=== PATIENT | female | born 1975 | race Caucasian/White ===

== ENCOUNTER 2019-10-21 06:49 | Outpatient (CLI) | payer OTHER, SELFPAY ==
--- NOTE | ~2019-10-21 | XR_ITS ---
EXAMINATION: XR hand BI arthritis min 3V DATE: 10/21/2019 15:21 INDICATION: Arthralgia of both hands. TECHNIQUE: 4 views of right hand and 4 views of left hand on 7 radiographs were obtained. COMPARISON: Left hand fifth digit radiographs 02/16/2011 FINDINGS: RIGHT HAND: Bone alignment is normal. No fracture. There is mild osteoarthritis of fifth distal inter phalangeal joint. LEFT HAND: Bone alignment is normal. No fracture. There is mild osteoarthritis of first interphalange al joint and second, third, and fifth distal interphalangeal joints. IMPRESSION: 1. Mild polyarticular osteoarthritis. Reviewed, dictated and finalized at location A.
[2019-10-21 07:44] LABS: Basophils Percent Auto 0.6 % (0.2-1.2); Eosinophils Absolute Auto 0.1 K/mm3 (0-0.3); Eosinophils Percent Auto 2.3 % (0-4.4); Hemoglobin 12.7 g/dL (12.0-15.0); Immature Granulocyte Absolute 0.02 K/mm3 (0.00-0.031); Immature Granulocyte Percent A 0.4 % (0-0.5); Lymphocytes Absolute Auto 1.45 K/mm3 (0.9-3.2); Lymphocytes Percent Auto 30.1 % (18.3-44.2); Mean Corpuscular HGB Conc 33.4 g/dl (32-36); Mean Corpuscular Hemoglobin 31.3 pg (26-34); Mean Corpuscular Volume 93.6 fl (80-100); Mean Platelet Volume 10.1 fl (7.4-10.4); Monocytes Absolute Auto 0.3 K/mm3 (0.1-0.6); Monocytes Percent Auto 6.4 % (2.6-8.5); Neutrophils Absolute Auto 2.9 K/mm3 (1.3-6.7); Neutrophils Percent Auto 60.2 % (45.5-73.1); Platelet Count Result 215 k/mm3 (150-375); Red Blood Count 4.06 M/mm3 (4.2-5.4); Red Cell Distribution Width 13.1 % (11.5-14.5); White Blood Count 4.8 K/mm3 (4.5-10.0)
[2019-10-21 07:59] LABS: Alanine Aminotransferase 22 U/L (4-35); Albumin Level 4.4 g/dL (3.5-5.1); Alkaline Phosphatase 61 U/L (38-126); Anion Gap 9.9 mmol/L (7-16); Aspartate Amino Transferase 27 U/L (14-36); Bilirubin,Total 0.7 mg/dL (0.2-1.3); Blood Urea Nitrogen 10 mg/dL (7-17); Calcium 8.8 mg/dL (8.4-10.2); Carbon Dioxide 27 mmol/L (22-30); Chloride 103 mmol/L (98-107); Cholesterol 205 mg/dL (0-200); Estimated Glomerular Filt Rate > 60; Glucose 96 mg/dL (65-105); HDL Direct 66 mg/dL; Potassium 3.9 mmol/L (3.4-5.0); Sodium 136 mmol/L (137-145); Triglycerides 87 mg/dL (<150)
[2019-10-21 08:09] LABS: LDL Cholesterol Direct 97 mg/dL
[2019-10-21 08:10] LABS: Add Urine Microscopic? YES; Appearance Urine Cloudy (Clear); Bacteria Urine Trace /hpf; Bilirubin Urine Negative (Negative); Blood Urine 1+ (Negative); Color Urine Yellow (Yellow); Glucose Urine UA Negative (Negative); Ketones Urine Negative (Negative); Leukocyte Esterase Ur 3+ LEU/UL (Negative); Mucus Urine Few /lpf; Nitrate Urine Negative (Negative); Protein Urine Negative (Negative); Squamous Epithelial Cell Urine Many /hpf (Few); Urobilinogen Urine Negative mg/dL (<2.0)
[2019-10-21 09:01] LABS: Rheumatoid Factor < 8.6 IU/ML (<12)
[2019-10-24 17:47] LABS: SS-A <1.0; SS-B <1.0
== END 2019-10-21 06:50 | disposition home or self-care (01) ==
LOC: ANHLAB 06:53
PROVIDERS: PCP Internal Medicine; Visit Provider Registered Nurse
DX: M25.571 Pain in right ankle and joints of right foot (principal); Z68.21 Body mass index [BMI] 21.0-21.9, adult; M25.572 Pain in left ankle and joints of left foot; H04.123 Dry eye syndrome of bilateral lacrimal glands; M19.041 Primary osteoarthritis, right hand; M19.042 Primary osteoarthritis, left hand
CPT/HCPCS: 36415; 73130; 80053; 80061; 81001; 84443; 84550; 85025; 86038; 86235; 86430; 87086; 87088

== ENCOUNTER 2020-02-02 11:23 | Outpatient (CLI) | payer OTHER, SELFPAY ==
--- NOTE | ~2020-02-02 | XR_ITS ---
EXAMINATION: XR chest 2V DATE: 02/02/2020 11:50 INDICATION: Pleuritic chest pain. TECHNIQUE: Frontal and lateral views of the chest were obtained. COMPARISON: Chest single view 08/01/2003 FINDINGS: There is mild scarring at the lung apices. There is chronic scarring in the lingula. No ple ural effusion or pneumothorax. The heart size is normal. IMPRESSION: 1. Stable scarring at the lung apices and in the lingula. Reviewed, dictated and finalized at location B. R SEAMER
== END 2020-02-02 11:24 | disposition home or self-care (01) ==
PROVIDERS: PCP Internal Medicine; Visit Provider Internal Medicine
DX: R07.1 Chest pain on breathing (principal); R91.8 Other nonspecific abnormal finding of lung field
CPT/HCPCS: 71046

== ENCOUNTER 2020-02-29 15:34 | Outpatient (CLI) | payer OTHER, SELFPAY ==
--- NOTE | ~2020-02-29 | MM_ITS ---
EXAMINATION: MM screening jessica BI w rachel HISTORY: Screening TECHNIQUE: Craniocaudal and mediolateral oblique 3-D tomosynthesis images were obtained and synthetic 2-D images were generated. CAD analysis was submitted and interpreted. COMPARISON: 05/02/2016 BREAST PARENCHYMAL COMPOSITION: The breasts are extremely dense, which lowers the sensitivity of mamm ography. FINDINGS: There is no evidence of suspicious mass, calcification, or architectural distortion to sugg est malignancy in either breast. There has been no suspicious interval change. IMPRESSION: 1. No mammographic evidence of malignancy. 2. Recommend routine screening mammography in one year. BI-RADS Category 1: Negative Reviewed, dictated and finalized at location A. ING SERVICES MANAGER
[2020-02-29 16:43] LABS: CRP < 0.5 mg/dL (<1.0); Uric Acid 2.8 mg/dL (2.5-7.5)
[2020-02-29 16:58] LABS: T4 Thyroxine 7.78 ug/dL (5.53-11.0)
[2020-02-29 17:14] LABS: Erythrocyte Sedimentation Rate 23 mm/hr (0-20)
[2020-02-29 17:53] LABS: Folic Acid > 20.0 ng/mL (2.76->20)
[2020-02-29 18:23] LABS: Vitamin D 25 Hydroxy 31.9 ng/mL
[2020-03-02 22:13] LABS: Anti Cyclic Citrullinated Pept <16 Units (<20)
[2020-03-03 14:33] LABS: FSH 13.6 mIU/mL (***)
[2020-03-10 13:36] LABS: Reference Lab Test Name 14-3-3 eta Protein
== END 2020-02-29 15:35 | disposition home or self-care (01) ==
PROVIDERS: Internal Medicine Rheumatology; PCP Internal Medicine; Visit Provider Obstetrics & Gynecology
DX: Z12.31 Encounter for screening mammogram for malignant neoplasm of breast (principal); N91.2 Amenorrhea, unspecified; E55.9 Vitamin D deficiency, unspecified; E53.8 Deficiency of other specified B group vitamins; R53.83 Other fatigue; E83.42 Hypomagnesemia; M19.90 Unspecified osteoarthritis, unspecified site
CPT/HCPCS: 36415; 77063; 77067; 82306; 82607; 82746; 83001; 83520; 84436; 84443; 84550; 85652; 86038; 86140; 86200

== ENCOUNTER 2021-05-11 14:59 | Outpatient (CLI) | payer OTHER, SELFPAY ==
[2021-05-11 15:24] LABS: Basophils Percent Auto 0.5 % (0.2-1.2); Eosinophils Absolute Auto 0.2 K/mm3 (0-0.3); Eosinophils Percent Auto 2.4 % (0-4.4); Hematocrit 36.3 % (37.0-47.0); Immature Granulocyte Absolute 0.01 K/mm3 (0.00-0.031); Immature Granulocyte Percent A 0.2 % (0-0.5); Lymphocytes Absolute Auto 1.54 K/mm3 (0.9-3.2); Lymphocytes Percent Auto 24.1 % (18.3-44.2); Mean Corpuscular HGB Conc 33.1 g/dl (32-36); Mean Corpuscular Hemoglobin 31.7 pg (26-34); Monocytes Absolute Auto 0.3 K/mm3 (0.1-0.6); Monocytes Percent Auto 4.9 % (2.6-8.5); Neutrophils Absolute Auto 4.3 K/mm3 (1.3-6.7); Neutrophils Percent Auto 67.9 % (45.5-73.1); Platelet Count Result 214 k/mm3 (150-375); Red Blood Count 3.78 M/mm3 (4.2-5.4); Red Cell Distribution Width 12.7 % (11.5-14.5); White Blood Count 6.4 K/mm3 (4.5-10.0)
[2021-05-11 15:42] LABS: Alanine Aminotransferase 11 U/L (4-35); Albumin Level 4.5 g/dL (3.5-5.1); Alkaline Phosphatase 54 U/L (38-126); Anion Gap 9 mmol/L (8-16); Aspartate Amino Transferase 27 U/L (14-36); Bilirubin,Total 0.5 mg/dL (0.2-1.3); Blood Urea Nitrogen 14 mg/dL (7-17); Calcium 9.3 mg/dL (8.4-10.2); Carbon Dioxide 30 mmol/L (22-30); Chloride 100 mmol/L (98-107); Cholesterol 177 mg/dL (0-200); Estimated Glomerular Filt Rate > 60; Glucose 121 mg/dL (65-110); HDL Direct 59 mg/dL; Potassium 3.8 mmol/L (3.4-5.0); Sodium 139 mmol/L (137-145); Triglycerides 87 mg/dL (<150)
[2021-05-11 15:51] LABS: LDL Cholesterol Direct 81 mg/dL
[2021-05-11 20:20] LABS: Vitamin D 25 Hydroxy 40.9 ng/mL
[2021-05-14 12:53] LABS: FSH 33.2 mIU/mL (***)
== END 2021-05-11 15:00 | disposition home or self-care (01) ==
PROVIDERS: PCP Internal Medicine; Visit Provider Obstetrics & Gynecology
DX: Z00.00 Encounter for general adult medical examination without abnormal findings (principal); Z20.822 Contact with and (suspected) exposure to COVID-19; N95.1 Menopausal and female climacteric states
CPT/HCPCS: 36415; 80053; 80061; 82306; 83001; 84443; 85025; 86769

== ENCOUNTER 2021-10-03 07:56 | Emergency (ER) | payer OTHER, SELFPAY ==
--- NOTE | ~2021-10-03 | XR_ITS ---
EXAMINATION: XR wrist RT min 3V DATE: 10/03/2021 08:19 INDICATION: Pain at the right carpus post injury TECHNIQUE: Posteroanterior, ulnar deviation, oblique, and lateral views of the right wrist were obtai [place]. COMPARISON: Right hand radiographs dated 10/21/2019 FINDINGS: Alignment is normal. No fracture. Mild osteoarthritis at the distal radioulnar, second and third carp ometacarpal, fifth metacarpophalangeal and a few of the visualized interphalangeal joints. Soft tissu es are unremarkable. IMPRESSION: 1. Mild polyarticular osteoarthritis. No acute osseous abnormality. Reviewed, dictated and finalized at location B.
[2021-10-03 08:08] VITALS: BP 113/70; PULSE 95; RESP 18; TEMP 36.8; O2SAT 100
--- NOTE | 2021-10-03 09:10 | ED.UPPEXIN ---
HPI - Extremity Injury (Upper) General Chief Complaint: Extremity Injury, Upper Stated Complaint: work related wrist injury Time Seen by Provider: 10/03/21 08:47 History of Present Illness HPI narrative: 46-year-old female presents the emergency room for evaluation of right wrist injury. 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 The pen slipped causing her wrist to hyperextend. Injury occurred yesterday. Reports pain radiates into her forearm. Denies any loss of function. Has not taken any medications to alleviate her symptoms. Related Data Home Medications Medication Instructions Recorded Confirmed zinc 50 mg tablet 50 mg PO DAILY 02/15/20 02/21/20 ascorbate calcium (vitamin C) 500 500 mg PO DAILY 02/27/21 mg tablet cholecalciferol (vitamin D3) 50 50 mcg PO DAILY 02/27/21 mcg (2,000 unit) capsule multivitamin 1 tablet PO DAILY 02/27/21 Allergies Allergy/AdvReac Type Severity Reaction Status Date / Time No Known Allergies Allergy Verified 02/27/21 09:09 Review of Systems Review of Systems: CONSTITUTIONAL: Denies fever, chills, or sweats. EYES: Denies visual changes, redness, or discharge. ENT: Denies rhinorrhea, congestion, sore throat, or otalgia. CARDIOVASCULAR: Denies chest pain, palpitations, or edema. RESPIRATORY: Denies cough or dyspnea. GASTROINTESTINAL: Denies abdominal pain, nausea, vomiting, or diarrhea. GENITOURINARY: Denies dysuria or hematuria. SKIN: Denies rash or itching. MUSCULOSKELETAL: Reports right wrist pain NEUROLOGIC: Denies headache, numbness, dizziness, or weakness. PSYCHIATRIC: Denies anxiety or depression. [facility] Past Medical History Medical History Depression History of anemia History of depression Miscarriage Surgical History Surgical History H/O laparoscopy History of endometrial ablation S/P dilation and curettage [place] teeth extracted Family History Family History Father Diabetes mellitus Hypertension Mother Hypertension Social History Social History Smoking status: Never smoker Alcohol intake: current Drinks per week: 1 Substance use: never Exam Narrative: GENERAL: Well-appearing, well-nourished, no physical limitations, and in no acute distress. HEAD: Normocephalic, atraumatic. EYES: Conjunctivae normal, PERRLA and EOMI. CHEST: Clear to auscultation. No respiratory distress. No wheezes rales or rhonchi. No tenderness. HEART: Regular rate and rhythm. No murmur heard. Normal peripheral pulses. EXTREMITIES: Right wrist: Tenderness in the radiocarpal joint, no soft tissue swelling noted full range of motion in all godinez of movement, no bony abnormality, no ecchymosis. Neurovascular is intact distally no snuffbox tenderness SKIN: Warm, dry, no rash. No noted wounds NEURO: No focal deficits. Alert and oriented x3. MAEW. CN's II-XI intact bilaterally, normal gait PSYCH: Cooperative. Normal mood and affect. Course Vital Signs Vital signs: Vital Signs Temperature 36.8 C 10/03/21 08:08 Pulse Rate 95 10/03/21 08:08 Respiratory Rate 18 10/03/21 08:08 Blood Pressure 113/70 10/03/21 08:08 Pulse Oximetry 100 10/03/21 08:08 Temperature 36.8 C 10/03/21 08:08 Pulse Rate 95 10/03/21 08:08 Respiratory Rate 18 10/03/21 08:08 Blood Pressure 113/70 10/03/21 08:08 Pulse Oximetry 100 10/03/21 08:08 Discharge Plan Discharge Clinical Impression: Right wrist sprain Patient Disposition: Home, Self-Care Condition: Stable Instructions: Antibiotic Form, Wrist Sprain (ED) Additional Instructions: Wear Paolo bandage until you can acquire a wrist splint. Wear your splint for comfort for the next 5 to 7 days. Anitha morrissey
== END 2021-10-03 10:01 | disposition home or self-care (01) ==
LOC: ANHED 09:22
PROVIDERS: Emergency Provider Nurse Practitioner Family; PCP Internal Medicine
DX: S63.501A Unspecified sprain of right wrist, initial encounter (principal); X58.XXXA Exposure to other specified factors, initial encounter; Y99.0 Civilian activity done for income or pay
CPT/HCPCS: 73110; 99283

== ENCOUNTER 2022-03-06 00:09 | Day surgery (SDC) | payer OTHER, SELFPAY ==
--- NOTE | 2022-01-13 10:51 | SUR.PREOP ---
[address] POZO'S UNAVAILABILITY FOR HER PROCEDURE TOMORROW. INSTRUCTED PATIENT TO RESUME NORMAL DIET AND INFORMED HER THAT THE DOCTOR'S OFFICE WOULD BE CALLING HER TO RESCHEDULE HER PROCEDURE. PATIENT VOICED UNDERSTANDING.
[2022-03-06 08:16] VITALS: BP 114/68; PULSE 98; RESP 18; TEMP 36.3; O2SAT 100; BMI 20.5
[2022-03-06] MEDS: LACTATED RINGERS 1,000 ML 150 ML IV CONT (08:25)
--- NOTE | 2022-03-06 09:01 | WPDANESEPPF ---
Anes - Initial Pre Proc Eval Procedure: Operation Date: 03/06/22 09:15 Proposed Procedures p Screening Colonoscopy - Danish Rocha MD Date/Time: 03/06/22 09:01 Surgeon: Danish Rocha MD Pre Op Diagnosis: neoplasm screening Patient Data Age: 46 Gender: F Height: 1.7 m Weight: 59.4 kg Last Vital Signs Temp 97.4 F L 03/06/22 08:16 Pulse 98 03/06/22 08:16 Resp 18 03/06/22 08:16 BP 114/68 03/06/22 08:16 Pulse Ox 100 03/06/22 08:16 Allergies Allergy/AdvReac Type Severity Reaction Status Date / Time No Known Allergies Allergy Verified 02/25/22 14:24 Home Medications Medication Instructions Recorded Confirmed Type zinc 50 mg tablet 50 mg PO DAILY 02/15/20 02/25/22 History ascorbate calcium (vitamin C) 500 500 mg PO DAILY 02/27/21 02/25/22 History mg tablet cholecalciferol (vitamin D3) 50 50 mcg PO DAILY 02/27/21 02/25/22 History mcg (2,000 unit) capsule multivitamin 1 tablet PO DAILY 02/27/21 02/25/22 History Patient hx anesthesia problems: post op nausea/vomiting Family hx anesthesia problems: none Results Review: All pre-operative results and documents have been reviewed as part of the pre-operative evaluation. [facility] Past Medical History Medical History Depression History of anemia History of depression Miscarriage Surgical History Surgical History H/O laparoscopy History of endometrial ablation S/P dilation and curettage [place] teeth extracted Family History Family History Father Diabetes mellitus Hypertension Mother Hypertension Social History Social History Smoking status: Never smoker Alcohol intake: current Drinks per week: 1 Substance use: never Substance use type: does not use Living arrangements: with family Spiritual care concerns: No Anes - Eval Final PreProcedure Day of Procedure 03/06/22 09:01 Patient weight: normal Heart: regular rate and rhythm Lungs: clear to auscultation Airway: Mallampati scale class II Neurological: alert and oriented Last oral intake: >/= 8 hours ASA classification: II Emergent: no Anesthetic plan: proceed Anesthesia type and monitoring: general GIVS and standard monitoring Results Review: All pre-operative results and documents have been reviewed as part of the pre-operative evaluation. Informed Consent: The patient's anesthetic plan and its attendant risks and benefits were discussed with the patient/family/POA. Questions were solicited and answers provided to the satisfaction of the patient/family/POA.
--- NOTE | 2022-03-06 09:04 | P.PNAN_ITS ---
Anes - Initial Pre Proc Eval Procedure: Operation Date: 03/06/22 09:15 Proposed Procedures p Screening Colonoscopy - Danish Rocha MD Date/Time: 03/06/22 09:04 Surgeon: Danish Rocha MD Pre Op Diagnosis: neoplasm screening Patient Data Age: 46 Gender: F Height: 1.7 m Weight: 59.4 kg Last Vital Signs Temp 97.4 F L 03/06/22 08:16 Pulse 98 03/06/22 08:16 Resp 18 03/06/22 08:16 BP 114/68 03/06/22 08:16 Pulse Ox 100 03/06/22 08:16 Allergies Allergy/AdvReac Type Severity Reaction Status Date / Time No Known Allergies Allergy Verified 02/25/22 14:24 Home Medications Medication Instructions Recorded Confirmed Type zinc 50 mg tablet 50 mg PO DAILY 02/15/20 02/25/22 History ascorbate calcium (vitamin C) 500 500 mg PO DAILY 02/27/21 02/25/22 History mg tablet cholecalciferol (vitamin D3) 50 50 mcg PO DAILY 02/27/21 02/25/22 History mcg (2,000 unit) capsule multivitamin 1 tablet PO DAILY 02/27/21 02/25/22 History Patient hx anesthesia problems: post op nausea/vomiting Family hx anesthesia problems: none Results Review: All pre-operative results and documents have been reviewed as part of the pre- operative evaluation. [facility] Past Medical History Medical History Depression History of anemia History of depression Miscarriage Surgical History Surgical History H/O laparoscopy History of endometrial ablation S/P dilation and curettage [place] teeth extracted Family History Family History Father Diabetes mellitus Hypertension Mother Hypertension Social History Social History Smoking status: Never smoker Alcohol intake: current Drinks per week: 1 Substance use: never Substance use type: does not use Living arrangements: with family Spiritual care concerns: No Anes - Eval Final PreProcedure Day of Procedure 03/06/22 09:04 Patient weight: normal Heart: regular rate and rhythm Lungs: clear to auscultation Airway: Mallampati scale class II Neurological: alert and oriented Last oral intake: >/= 8 hours Emergent: no Anesthetic plan: proceed Anesthesia type and monitoring: general GIVS and standard monitoring Results Review: All pre-operative results and documents have been reviewed as part of the pre- operative evaluation. Informed Consent: The patient's anesthetic plan and its attendant risks and benefits were discussed with the patient/family/POA. Questions were solicited and answers provided to the satisfaction of the patient/family/POA.
--- NOTE | 2022-03-06 09:20 | PM.HPGS ---
History of Present Illness History of Present Illness Consent: Risks, benefits, and alternatives have been discussed and questions answered. Patient agrees to proceed with procedure. Chief complaint: neoplasm screening Narrative: Prabha Kinney is a 46 year old female here for first screening colonoscopy Review of Systems Constitutional: Constitutional: Denies headache(s) and Denies weakness Eyes: Eyes: Denies blurry vision ENT: Reports Normal hearing present, Denies headache(s) and Denies neck pain Cardiovascular: Cardiovascular: Denies chest pain and Denies dyspnea Respiratory: Respiratory: Denies dyspnea Gastrointestinal: Gastrointestinal: Reports no additional gastrointestinal complaints Genitourinary: Genitourinary: Denies dysuria Musculoskeletal: Musculoskeletal: Denies neck pain Integumentary/Breasts: Skin/Breast: Denies dry skin Neurologic: Reports Normal hearing present, Denies headache(s) and Denies weakness Psychiatric: Psychiatric: Denies anxiety Endocrine: Endocrine: Denies change in body appearance Hematologic/Lymphatic: Hematologic/Lymphatic: Denies easy bleeding Allergic/Immunologic: Allergic/Immunologic: Denies urticaria [facility] Past Medical History Medical History (Updated 03/06/22 @ 09:20 by Danish Rocha MD) Colon cancer screening Depression History of anemia History of depression Miscarriage Surgical History Surgical History H/O laparoscopy History of endometrial ablation S/P dilation and curettage [place] teeth extracted Family History Family History Father Diabetes mellitus Hypertension Mother Hypertension Social History Social History Smoking status: Never smoker Alcohol intake: current Drinks per week: 1 Substance use: never Substance use type: does not use Living arrangements: with family Spiritual care concerns: No Meds Home Medications and Allergies Home Medications Medication Instructions Recorded Confirmed Type zinc 50 mg tablet 50 mg PO DAILY 02/15/20 02/25/22 History ascorbate calcium (vitamin C) 500 500 mg PO DAILY 02/27/21 02/25/22 History mg tablet cholecalciferol (vitamin D3) 50 50 mcg PO DAILY 02/27/21 02/25/22 History mcg (2,000 unit) capsule multivitamin 1 tablet PO DAILY 02/27/21 02/25/22 History Allergies Allergy/AdvReac Type Severity Reaction Status Date / Time No Known Allergies Allergy Verified 02/25/22 14:24 Vital Signs Vital Signs - 24 hr 03/06/22 08:16 Temperature 97.4 F L Pulse Rate 98 Respiratory Rate 18 Blood Pressure 114/68 Pulse Oximetry 100 Exam Const: General: comfortable and no acute distress HENMT: Face/Nose/Sinus: Normal nares present Eyes: General: appearance normal, both eyes and all related structures Neck: Neck: no JVD Resp: Auscultation: clear to auscultation bilaterally Cardio: Rate: regular rate Rhythm: regular rhythm GI: Inspection: non-distended GI Palp: Yes Soft to palpation Skin: General skin exam: normal color Neuro: General: gait normal Speech: normal speech Extrem: General: normal to inspection Psych: Mental Status: mental status grossly normal Assessment and Plan Assessment and plan (1) Colon cancer screening: Code(s): Z12.11 - Encounter for screening for malignant neoplasm of colon Status: Acute Assessment and Plan: colonoscopy
[2022-03-06 09:44] VITALS: BP 100/53; PULSE 90; RESP 26; O2SAT 100
[2022-03-06 09:54] VITALS: BP 106/69; PULSE 82; RESP 21; O2SAT 98
[2022-03-06 10:04] VITALS: BP 117/71; PULSE 83; RESP 20; O2SAT 99
[2022-03-06] MEDS: ONDANSETRON HCL ODT 4 MG TABLET PO (10:22)
== END 2022-03-06 10:35 | disposition home or self-care (01) ==
PROVIDERS: PCP Internal Medicine; Visit Provider Internal Medicine Gastroenterology
PROC: 0DJD8ZZ Inspection of Lower Intestinal Tract, Via Natural or Artificial Opening Endoscopic (ICD-10-PCS; CPT 45378; principal; 2022-03-06 09:15)
DX: Z12.11 Encounter for screening for malignant neoplasm of colon (principal); D12.3 Benign neoplasm of transverse colon
CPT/HCPCS: 45385; 88305; A9270; J2704; J7120

== ENCOUNTER 2022-08-23 12:37 | Emergency (ER) | payer OTHER, SELFPAY ==
--- NOTE | ~2022-08-23 | CT_ITS ---
EXAMINATION: CT abdomen pelvis wo con DATE: 08/23/2022 16:13 INDICATION: Right flank pain. Kidney stone. TECHNIQUE: Computed tomography (CT) of the abdomen and pelvis was performed without intravenous contr ast. Automated exposure control and iterative reconstruction technique were employed. The dose-length product was 186.46 mGy-cm. COMPARISON: None. FINDINGS: The visualized portions of the lung bases demonstrate mild atelectasis. No pleural effusion . The heart size is normal. No pericardial effusion. The liver, gallbladder, spleen, pancreas, and ad renal glands are normal. There is mild right hydronephrosis and hydroureter. There is a 4 mm calcific ation in right pelvis. There is a 2 mm stone in left kidney. There are no dilated loops of bowel. The appendix is not normal. There is physiologic fluid in the pelvis. There are no pathologically enlarg ed lymph nodes. There is mild lumbar spondylosis. IMPRESSION: 1. Mild right hydronephrosis and hydroureter. A 4 mm calcification in right pelvis may be a phlebolit h or distal ureteral stone. 2. 2 mm nonobstructing left kidney stone. Reviewed, dictated and finalized at location A. IMPRESSION: 1. Mild right hydronephrosis and hydroureter. A 4 mm calcification in right pel vis may be a phlebolith or distal ureteral stone. 2. 2 mm nonobstructing left kidney stone.
[2022-08-23 12:39] VITALS: BP 113/67; PULSE 88; RESP 16; TEMP 36.8; O2SAT 100
[2022-08-23 13:20] LABS: Alanine Aminotransferase 19 U/L (6-35); Albumin Level 4.7 g/dL (3.5-5.1); Alkaline Phosphatase 56 U/L (38-126); Anion Gap 9 mmol/L (8-16); Aspartate Amino Transferase 27 U/L (14-36); Bilirubin,Total 0.7 mg/dL (0.2-1.3); Blood Urea Nitrogen 15 mg/dL (7-17); Calcium 8.9 mg/dL (8.4-10.2); Carbon Dioxide 28 mmol/L (22-30); Chloride 103 mmol/L (98-107); Estimated CRCL calculation 107 ml/min; Estimated Glomerular Filt Rate > 60; Glucose 109 mg/dL (65-110); Potassium 3.2 mmol/L (3.4-5.0); Sodium 140 mmol/L (137-145)
[2022-08-23 13:50] LABS: Appearance Urine Cloudy (Clear); Bacteria Urine 1+ /hpf; Bilirubin Urine Negative (Negative); Blood Urine 3+ (Negative); Color Urine Dark Yellow (Yellow); Glucose Urine UA Negative (Negative); Ketones Urine 3+ mg/dL (Negative); Leukocyte Esterase Ur Negative LEU/UL (Negative); Need Manual Microscopic Reviewed; Nitrate Urine Negative (Negative); Protein Urine 1+ mg/dL (Negative); RBC Urine >100 /hpf (0-2); Specific Grav Ur 1.034 (1.001-1.035); Squamous Epithelial Cell Urine Moderate /hpf (Few)
[2022-08-23 13:53] LABS: Add Urine Microscopic? YES
[2022-08-23 15:41] LABS: Basophils Percent Auto 0.2 % (0.2-1.2); Hematocrit 39.5 % (37.0-47.0); Hemoglobin 11.8 g/dL (12.0-15.0); Immature Granulocyte Absolute 0.05 K/mm3 (0.00-0.031); Immature Granulocyte Percent A 0.5 % (0-0.5); Lymphocytes Absolute Auto 0.36 K/mm3 (0.9-3.2); Lymphocytes Percent Auto 3.4 % (18.3-44.2); Mean Corpuscular HGB Conc 29.9 g/dl (32-36); Mean Corpuscular Hemoglobin 31.5 pg (26-34); Mean Corpuscular Volume 105.3 fl (80-100); Mean Platelet Volume 10.9 fl (7.4-10.4); Monocytes Absolute Auto 0.2 K/mm3 (0.1-0.6); Monocytes Percent Auto 1.4 % (2.6-8.5); Neutrophils Percent Auto 94.5 % (45.5-73.1); Platelet Count Result 205 k/mm3 (150-375); Red Blood Count 3.75 M/mm3 (4.2-5.4); White Blood Count 10.6 K/mm3 (4.5-10.0)
--- NOTE | 2022-08-23 15:48 | ED.FEMALEGU ---
HPI - Female Genitourinary General Chief complaint: Urogenital-Female Stated complaint: flank pain/vomiting Time Seen by Provider: 08/23/22 15:42 Source: patient and family Mode of arrival: ambulatory Limitations: no limitations History of Present Illness HPI Narrative: 47 years old white female presents with right flank pain that started last night, intermittent, there is no position comfortable, associated with nausea and vomiting. She denies any fever. Pain is like pressure, radiating to right lower quadrant, history of kidney stone years ago. She denies any urinary symptoms. Related Data Home Medications Medication Instructions Recorded Confirmed zinc 50 mg tablet 50 mg PO DAILY 02/15/20 03/08/22 ascorbate calcium (vitamin C) 500 500 mg PO DAILY 02/27/21 03/08/22 mg tablet cholecalciferol (vitamin D3) 50 50 mcg PO DAILY 02/27/21 03/08/22 mcg (2,000 unit) capsule multivitamin 1 tablet PO DAILY 02/27/21 03/08/22 Allergies Allergy/AdvReac Type Severity Reaction Status Date / Time No Known Allergies Allergy Verified 03/07/22 09:56 Review of Systems Review of Systems: All systems reviewed & are unremarkable except as noted in HPI and below PMFSH Past Medical History Medical History Colon cancer screening Depression History of anemia History of depression Miscarriage Surgical History Surgical History H/O laparoscopy History of endometrial ablation S/P dilation and curettage [place] teeth extracted Family History Family History Father Diabetes mellitus Hypertension Mother Hypertension Social History Social History Smoking status: Never smoker Alcohol intake: current Drinks per week: 1 Substance use: never Substance use type: does not use Living arrangements: with family Spiritual care concerns: No Exam Narrative: General appearance: Well-developed, well-nourished Skin: Normal color Head: Normocephalic, nontraumatic Eyes: Clear conjunctiva ENT: Oropharynx normal, ears normal, nose normal Neck: Supple, nontender Chest and respiratory: Airway patent, no respiratory distress, no accessory muscle use Heart: Regular rate/rhythm Abdomen: Soft, moderate tenderness right kidney, no bruises, no rash, no organomegaly, quiet bowel sounds Vascular: Normal peripheral pulses, normal capillary refill. Musculoskeletal: Normal range of motion, nontender back Neurologic: Alert and oriented ?3, [employer]ISER is normal as tested, no gross motor deficit Course [employer] BRANCH CHIEF/PA Physician Supervision . Reevaluation(s) Reevaluation #1: Feeling much better, almost no pain at this time after IV Dilaudid, Zofran and Flomax Date: 08/23/22 Time: 17:05 Vital Signs Vital signs: Vital Signs Temperature 36.8 C 08/23/22 12:39 Pulse Rate 88 08/23/22 12:39 Respiratory Rate 16 08/23/22 12:39 Blood Pressure 113/67 08/23/22 12:39 Pulse Oximetry 100 08/23/22 12:39 Oxygen Delivery Room Air 08/23/22 12:39 Temperature 36.8 C 08/23/22 12:39 Pulse Rate 67 08/23/22 17:56 Respiratory Rate 17 08/23/22 17:56 Blood Pressure 112/79 08/23/22 17:56 Pulse Oximetry 98 08/23/22 17:56 Oxygen Delivery Room Air 08/23/22 12:39 MDM - Female Genitourinary MDM Narrative Medical decision making narrative: Patient presents with right flank pain, last night, differential diagnosis include kidney stone, pyelonephritis, musculoskeletal, shingles Physical examination consistent with ri
[2022-08-23 16:29] LABS: Hypochromasia 1+ (NORMAL); Platelet Estimate Adequate (Adequate); Schistocytes None Seen (NORMAL)
[2022-08-23] MEDS: ONDANSETRON INJ 4 MG/2 ML VIAL IV PUSH (16:31)
[2022-08-23] MEDS: SODIUM CHLORIDE 0.9% IV 1,000 ML 999 ML IV CONT (16:31)
[2022-08-23] MEDS: TAMSULOSIN HCL 0.4 MG CAPSULE PO (16:31)
[2022-08-23 16:40] VITALS: BP 110/75; PULSE 76; O2SAT 99
[2022-08-23] MEDS: POTASSIUM CHLORIDE 20 MEQ TABLET 40 MEQ PO (17:19)
[2022-08-23] MEDS: KETOROLAC 30 MG/ML VIAL (*BKC) IV PUSH (17:46)
[2022-08-23 17:56] VITALS: BP 112/79; PULSE 67; RESP 17; O2SAT 98
== END 2022-08-23 17:58 | disposition home or self-care (01) ==
PROVIDERS: Emergency Provider Emergency Medicine; PCP Internal Medicine
DX: N13.2 Hydronephrosis with renal and ureteral calculous obstruction (principal); E87.6 Hypokalemia
CPT/HCPCS: 36415; 74176; 80053; 81001; 85025; 87086; 96361; 96374; 96375; 99284; A9270; J1885; J2405; J7030

== ENCOUNTER 2022-09-05 09:42 | Outpatient (CLI) | payer OTHER, SELFPAY ==
--- NOTE | ~2022-09-05 | XR_ITS ---
XR abdomen/kub 1V 09/05/2022 10:11 INDICATION: Right ureteral stone TECHNIQUE: KUB COMPARISON: No prior studies for comparison. FINDINGS: Bowel gas pattern is normal. There is no evidence of free air, mass, organomegaly, ascites or obstruction. There is a punctate left renal stone. The bones appear intact. IMPRESSION: 1: Punctate left nephrolithiasis. Reviewed, dictated and finalized at location []
--- NOTE | ~2022-09-05 | CT_ITS ---
EXAMINATION: CT abdomen pelvis wo con DATE: 09/05/2022 10:17 INDICATION: Right ureteral stone TECHNIQUE: Computed tomography (CT) of the abdomen and pelvis was performed without intravenous contr ast. The dose-length product was 162.38 mGy-cm. Automated exposure control and iterative reconstructi on technique were employed. COMPARISON: CT dated 08/23/2022. FINDINGS: There are calcifications in the right pelvis which most likely represents pelvic phlebolith s rather than ureteral stone. Consider correlation with CT urogram. Lung bases unremarkable. Heart size normal. No significant pleural or pericardial effusion. The liver , spleen, pancreas, adrenal glands there are nonobstructing bilateral renal stones. No significant hy dronephrosis. Nonobstructive bowel pattern. Bladder is unremarkable. No free air or free fluid. Gallb ladder is present. No significant vascular abnormality. No lymphadenopathy. No acute osseous abnormal ity. Mild osteoarthritis of the hips. IMPRESSION: 1. Calcification in the right pelvis which most likely represents pelvic phleboliths rather than uret eral stone. No hydronephrosis. Consider correlation with CT urogram. Reviewed, dictated and finalized at location L. IMPRESSION: 1. Calcification in the right pelvis which most likely represents pelvic phlebo liths rather than ureteral stone. No hydronephrosis. Consider correlation with CT urogram.
== END 2022-09-05 09:43 | disposition home or self-care (01) ==
PROVIDERS: PCP Internal Medicine; Visit Provider Nurse Practitioner Adult Health
DX: N20.0 Calculus of kidney (principal); N20.1 Calculus of ureter; R93.89 Abnormal findings on diagnostic imaging of other specified body structures
CPT/HCPCS: 74018; 74176

== ENCOUNTER 2022-12-03 08:34 | Outpatient (CLI) | payer OTHER, SELFPAY ==
[2022-12-03 10:20] LABS: Hematocrit 38.5 % (37.0-47.0); Hemoglobin 12.5 g/dL (12.0-15.0); Mean Corpuscular HGB Conc 32.5 g/dl (32-36); Mean Corpuscular Hemoglobin 31.3 pg (26-34); Mean Corpuscular Volume 96.3 fl (80-100); Platelet Count Result 192 k/mm3 (150-375); Red Cell Distribution Width 12.3 % (11.5-14.5); White Blood Count 5.1 K/mm3 (4.5-10.0)
[2022-12-03 10:28] LABS: Appearance Urine Clear (Clear); Bilirubin Urine Negative (Negative); Blood Urine Negative (Negative); Color Urine Yellow (Yellow); Glucose Urine UA Negative (Negative); Ketones Urine Negative (Negative); Leukocyte Esterase Ur Negative LEU/UL (NEGATIVE); Nitrate Urine Negative (Negative); Protein Urine Negative (Negative); Specific Grav Ur 1.004 (1.001-1.035); Urobilinogen Urine 0.2 mg/dL (<2.0); pH Urine 6.5 (5.0-9.0)
[2022-12-03 10:29] LABS: Add Urine Microscopic? NO
[2022-12-03 10:37] LABS: Alanine Aminotransferase 17 U/L (6-35); Albumin Level 4.7 g/dL (3.5-5.1); Alkaline Phosphatase 43 U/L (38-126); Anion Gap 7 mmol/L (8-16); Aspartate Amino Transferase 29 U/L (14-36); Bilirubin,Total 1.1 mg/dL (0.2-1.3); Blood Urea Nitrogen 15 mg/dL (7-17); Calcium 9.4 mg/dL (8.4-10.2); Carbon Dioxide 31 mmol/L (22-30); Chloride 101 mmol/L (98-107); Cholesterol 190 mg/dL (0-200); Estimated Glomerular Filt Rate > 60; Glucose 90 mg/dL (65-110); HDL Direct 52 mg/dL; Potassium 3.9 mmol/L (3.4-5.0); Sodium 139 mmol/L (137-145); Triglycerides 80 mg/dL (<150)
[2022-12-03 10:51] LABS: LDL Cholesterol Direct 95 mg/dL
[2022-12-03 11:12] LABS: Free T4 Free Thyroxine 1.45 ng/mL (0.78-2.19); Vitamin D 25 Hydroxy 32.9 ng/mL
== END 2022-12-03 08:35 | disposition home or self-care (01) ==
PROVIDERS: PCP Internal Medicine; Visit Provider Internal Medicine
DX: R63.4 Abnormal weight loss (principal)
CPT/HCPCS: 36415; 80053; 80061; 81003; 82306; 82607; 84439; 84443; 85027

== ENCOUNTER 2022-12-23 15:08 | Outpatient (CLI) | payer OTHER, SELFPAY ==
[2022-12-26 09:58] LABS: Immunoglobulin A 287 mg/dL (47-310); TTG IGA AB <1.0 U/mL (<15.0)
== END 2022-12-23 15:09 | disposition home or self-care (01) ==
LOC: ANHOBOP 15:10
PROVIDERS: PCP Internal Medicine; Visit Provider Internal Medicine
DX: R63.4 Abnormal weight loss (principal)
CPT/HCPCS: 36415; 82784; 86364

== ENCOUNTER 2023-02-27 15:20 | Outpatient (CLI) | payer OTHER, SELFPAY ==
[2023-02-27 15:45] LABS: Hematocrit 37.6 % (37.0-47.0); Hemoglobin 12.2 g/dL (12.0-15.0); Mean Corpuscular HGB Conc 32.4 g/dl (32-36); Mean Corpuscular Volume 95.4 fl (80-100); Mean Platelet Volume 10.6 fl (7.4-10.4); Platelet Count Result 215 k/mm3 (150-375); Red Blood Count 3.94 M/mm3 (4.2-5.4); Red Cell Distribution Width 12.5 % (11.5-14.5); White Blood Count 5.9 K/mm3 (4.5-10.0)
[2023-02-27 15:57] LABS: Alanine Aminotransferase 21 U/L (6-35); Albumin Level 4.8 g/dL (3.5-5.1); Alkaline Phosphatase 59 U/L (38-126); Anion Gap 10 mmol/L (8-16); Aspartate Amino Transferase 29 U/L (14-36); Bilirubin,Total 0.5 mg/dL (0.2-1.3); Blood Urea Nitrogen 18 mg/dL (7-17); CRP < 0.5 mg/dL (<1.0); Calcium 9.6 mg/dL (8.4-10.2); Carbon Dioxide 30 mmol/L (22-30); Chloride 101 mmol/L (98-107); Estimated Glomerular Filt Rate > 60; Glucose 93 mg/dL (65-110); Potassium 3.6 mmol/L (3.4-5.0); Sodium 141 mmol/L (137-145)
[2023-02-27 16:25] LABS: Erythrocyte Sedimentation Rate 21 mm/hr (0-20)
[2023-02-27 16:43] LABS: HIV 1/2 Ab P24 Ag Result Negative (Negative)
[2023-03-02 15:11] LABS: Hepatitis C RNA, Quant PCR <15 IU/mL
== END 2023-02-27 15:21 | disposition home or self-care (01) ==
LOC: ANHOBOP 15:22
PROVIDERS: PCP Internal Medicine; Visit Provider Nurse Practitioner Family
DX: R63.4 Abnormal weight loss (principal)
CPT/HCPCS: 36415; 80053; 84443; 85027; 85652; 86140; 86703; 87522; G0432

== ENCOUNTER 2023-03-12 07:58 | Outpatient (CLI) | payer OTHER, SELFPAY ==
[2023-03-21 17:43] LABS: Pancreatic Elastase, Stool >500 mcg/g
== END 2023-03-12 07:59 | disposition home or self-care (01) ==
PROVIDERS: PCP Internal Medicine; Visit Provider Nurse Practitioner Family
DX: R19.5 Other fecal abnormalities (principal)
CPT/HCPCS: 82653

== ENCOUNTER 2023-03-18 00:37 | Day surgery (SDC) | payer OTHER, SELFPAY ==
[2023-02-26 10:27] VITALS: BMI 16.5
--- NOTE | 2023-03-14 08:55 | SUR.PREOP ---
Patient called regarding upcoming procedure. Reviewed preop instructions, appointment times, and procedure prep.
[2023-03-18 06:18] VITALS: BP 98/60; PULSE 82; RESP 18; TEMP 36.3; O2SAT 100; BMI 16.5
[2023-03-18] MEDS: LACTATED RINGERS 1,000 ML 150 ML IV CONT (06:48)
--- NOTE | 2023-03-18 07:16 | WPDANESEPPF ---
Anes - Initial Pre Proc Eval Procedure: Operation Date: 03/18/23 07:30 Proposed Procedures p Esophagogastroduodenoscopy - Danish Rocha MD Date/Time: 03/18/23 07:16 Surgeon: Danish Rocha MD Pre Op Diagnosis: Abnormal weight loss Patient Data Age: 47 Gender: F Height: 1.7 m Weight: 47.9 kg Last Vital Signs Temp 97.4 F L 03/18/23 06:18 Pulse 82 03/18/23 06:18 Resp 18 03/18/23 06:18 BP 98/60 L 03/18/23 06:18 Pulse Ox 100 03/18/23 06:18 O2 Del Method Room Air 03/18/23 06:18 Allergies Allergy/AdvReac Type Severity Reaction Status Date / Time No Known Allergies Allergy Verified 03/11/23 10:25 Home Medications Medication Instructions Recorded Confirmed Type zinc 50 mg tablet 50 mg PO DAILY 02/15/20 03/11/23 History multivitamin 1 tablet PO DAILY 02/27/21 03/11/23 History omega 1-nek-hwm-fish oil 60 mg-90 1 cap PO DAILY 02/20/23 03/11/23 History mg-500 mg capsule (Fish Oil) Patient hx anesthesia problems: none Family hx anesthesia problems: none Results Review: All pre-operative results and documents have been reviewed as part of the pre-operative evaluation. [facility] Past Medical History Medical History Colon cancer screening Depression History of anemia History of depression Miscarriage Unintentional weight loss Surgical History Surgical History H/O laparoscopy History of endometrial ablation S/P dilation and curettage [place] teeth extracted Family History Family History Father Diabetes mellitus Hypertension Mother Hypertension Social History Social History Smoking status: Never smoker Alcohol intake: never Drinks per week: 1 Substance use: never Substance use type: does not use Do You Feel Safe in your Home?: Yes Lack of Transportation: No Lack of Food: Never True Current Housing: I Have Housing Concerned About Future Housing: No Difficulty Paying Gas/Electric Bills: No Difficulty Paying for Meds: No Currently Unemployed: No Living arrangements: with family Gender identity (if verbalized by the patient): Female Sexual Orientation (if Verbalized by the Patient): Straight or Heterosexual Spiritual care concerns: No Anes - Eval Final PreProcedure Day of Procedure 03/18/23 07:16 Patient weight: normal Heart: regular rate and rhythm Lungs: clear to auscultation Airway: Mallampati scale class II Neurological: alert and oriented Last oral intake: >/= 8 hours ASA classification: II Emergent: no Anesthetic plan: proceed Anesthesia type and monitoring: general GIVS and standard monitoring Results Review: All pre-operative results and documents have been reviewed as part of the pre-operative evaluation. Informed Consent: The patient's anesthetic plan and its attendant risks and benefits were discussed with the patient/family/POA. Questions were solicited and answers provided to the satisfaction of the patient/family/POA.
--- NOTE | 2023-03-18 07:29 | PM.HPGS ---
History of Present Illness History of Present Illness Consent: Risks, benefits, and alternatives have been discussed and questions answered. Patient agrees to proceed with procedure. Chief complaint: Abnormal weight loss Narrative: Prabah Kinney is a 47 year old female with weight loss and food not tasking ok, colonoscopy last year was ok, never had EGD. Had CT scan earlier this year, serology for celiac negative. Review of Systems Constitutional: Constitutional: Denies headache(s) and Denies weakness Eyes: Eyes: Denies blurry vision ENT: Reports Normal hearing present, Denies headache(s) and Denies neck pain Cardiovascular: Cardiovascular: Denies chest pain and Denies dyspnea Respiratory: Respiratory: Denies dyspnea Gastrointestinal: Gastrointestinal: Reports no additional gastrointestinal complaints Genitourinary: Genitourinary: Denies dysuria Musculoskeletal: Musculoskeletal: Denies neck pain Integumentary/Breasts: Skin/Breast: Denies dry skin Neurologic: Reports Normal hearing present, Denies headache(s) and Denies weakness Psychiatric: Psychiatric: Denies anxiety Endocrine: Endocrine: Denies change in body appearance Hematologic/Lymphatic: Hematologic/Lymphatic: Denies easy bleeding Allergic/Immunologic: Allergic/Immunologic: Denies urticaria PMFSH Past Medical History Medical History (Updated 03/18/23 @ 07:30 by Danish Rocha MD) Altered taste Colon cancer screening Depression History of anemia History of depression Miscarriage Unintentional weight loss Surgical History Surgical History H/O laparoscopy History of endometrial ablation S/P dilation and curettage [place] teeth extracted Family History Family History Father Diabetes mellitus Hypertension Mother Hypertension Social History Social History Smoking status: Never smoker Alcohol intake: never Drinks per week: 1 Substance use: never Substance use type: does not use Do You Feel Safe in your Home?: Yes Lack of Transportation: No Lack of Food: Never True Current Housing: I Have Housing Concerned About Future Housing: No Difficulty Paying Gas/Electric Bills: No Difficulty Paying for Meds: No Currently Unemployed: No Living arrangements: with family Gender identity (if verbalized by the patient): Female Sexual Orientation (if Verbalized by the Patient): Straight or Heterosexual Spiritual care concerns: No Meds Home Medications and Allergies Home Medications Medication Instructions Recorded Confirmed Type zinc 50 mg tablet 50 mg PO DAILY 02/15/20 03/11/23 History multivitamin 1 tablet PO DAILY 02/27/21 03/11/23 History omega 4-mup-exm-fish oil 60 mg-90 1 cap PO DAILY 02/20/23 03/11/23 History mg-500 mg capsule (Fish Oil) Allergies Allergy/AdvReac Type Severity Reaction Status Date / Time No Known Allergies Allergy Verified 03/11/23 10:25 Vital Signs Vital Signs - 24 hr 03/18/23 06:18 Temperature 97.4 F L Pulse Rate 82 Respiratory Rate 18 Blood Pressure 98/60 L Pulse Oximetry 100 Oxygen Delivery Room Air Exam Const: General: comfortable and no acute distress HENMT: Face/Nose/Sinus: Normal nares present Eyes: General: appearance normal, both eyes and all related structures Neck: Neck: no JVD Resp: Auscultation: clear to auscultation bilaterally Cardio: Rate: regular rate Rhythm: regular rhythm GI: Inspection: non-distended GI Palp: Yes Soft to palpation Skin: General skin exam: normal color Neuro: General: gait normal Speech: normal speech Extrem: General: normal to inspection Psych: Mental Status: mental status grossly normal Assessment and Plan Assessment and plan (1) Unintentional weight loss: Code(s): R63.4 - Abnormal
[2023-03-18 07:44] VITALS: BP 84/51; PULSE 78; RESP 17; O2SAT 98
[2023-03-18 07:54] VITALS: BP 83/42; PULSE 85; RESP 20; O2SAT 100
[2023-03-18 08:04] VITALS: BP 95/58; PULSE 80; RESP 20; O2SAT 100
== END 2023-03-18 08:35 | disposition home or self-care (01) ==
PROVIDERS: PCP Internal Medicine; Visit Provider Internal Medicine Gastroenterology
PROC: 0DJ08ZZ Inspection of Upper Intestinal Tract, Via Natural or Artificial Opening Endoscopic (ICD-10-PCS; CPT 43235; principal; 2023-03-18 07:30)
DX: K29.50 Unspecified chronic gastritis without bleeding (principal); K63.89 Other specified diseases of intestine; R63.4 Abnormal weight loss; Z68.1 Body mass index [BMI] 19.9 or less, adult
CPT/HCPCS: 43239; 88305; J2001; J2704; J7120

== ENCOUNTER 2025-01-06 16:41 | Outpatient (CLI) | payer OTHER, SELFPAY ==
--- OUTSIDE RECORDS SUMMARY | 2016-05-02 01:00 | XMS_ITS | Encounter Summary ---
Author Organization [facility] Healthcare Address [address] [place] [id number] Care Team Providers Care [employer] Foreman Name Role Phone Unavailable Primary Care Provider Unavailabl e Reason for Visit * Diagnostic Imaging (Routine) - Closed Specialty Diagnoses / Procedures Referred By Ada t Referred To Contact Procedures Breast Imaging Screening Outside Reference Referral, Self Referral ID Status Reason Start Date Expiration Date Visits Re quested Visits Authorized [id number] Closed 04/01/2022 05/01/2023 1 1 Encounter Details Date Type Department Care Team (Late st Contact Info) Description 05/02/2016 Hospital Encounter [facility] [address] [place] [id number] Social History Tobacco Use Types Packs/Day Years Used Date Smoking Tobacco: Never Assessed Personal Safety Answer Date Recorded Getting School Help Needed Not on file 03/26 Comments Unknown Sex and Gender Information Value Date Recorded Sex Assigned at Not on file Legal Sex Female 2:43 AM [employer] Gender Identity Not on file Sexual Orientation Not on file documented as of this encounter Plan of Treatment Not on file documented as of this encounter Procedures Procedure Name Priority Date/Time Associated Diagnosis Comments BREAST IMAGING MG SCREENING OUTSIDE REFERENCE Routine 05/02/2016 12:00 AM [employer] documented in this encounter Results * Breast Imaging Screening Outside Reference (05/02/2016 12:00 AM [employer]) Impressions [facility]MO[facility] - 04/01/2022 9:37 AM [employer] These images are for Reference purposes only and have not been reviewed by [facility] Radiology. There will be no report generated by a [facility] Radiologist. Narrative [facility] - 04/01/2022 9:37 AM [employer] EXAMINATION: Images For Reference Purposes Only us Self Referral IMG MAMMO PROCEDURES Final Resul t [facility] documented in this encounter Visit Diagnoses Not on filedocumented in this encounter
--- OUTSIDE RECORDS SUMMARY | 2020-02-29 01:00 | XMS_ITS | Encounter Summary ---
Author Organization [facility] Healthcare Address [address] [place] [id number] Care Team Providers Care Master [employer] Name Role Phone Unavailable Primary Care Provider Unavailabl e Reason for Visit * Diagnostic Imaging (Routine) - Closed Specialty Diagnoses / Procedures Referred By Ada t Referred To Contact Procedures Breast Imaging Screening Outside Reference Referral, Self Referral ID Status Reason Start Date Expiration Date Visits Re quested Visits Authorized [id number] Closed 04/01/2022 05/01/2023 1 1 Encounter Details Date Type Department Care Team (Late st Contact Info) Description 02/29/2020 Hospital Encounter [facility] [address] [place] [id number] Social History Tobacco Use Types Packs/Day Years Used Date Smoking Tobacco: Never Assessed Personal Safety Answer Date Recorded Getting School Help Needed Not on file 03/26 Comments Unknown Sex and Gender Information Value Date Recorded Sex Assigned at Not on file Legal Sex Female 2:43 AM [employer] Gender Identity Not on file Sexual Orientation Not on file documented as of this encounter Plan of Treatment Not on file documented as of this encounter Procedures Procedure Name Priority Date/Time Associated Diagnosis Comments BREAST IMAGING MG SCREENING OUTSIDE REFERENCE Routine 02/29/2020 12:00 AM [employer] documented in this encounter Results * Breast Imaging Screening Outside Reference (02/29/2020 12:00 AM [employer]) Impressions [facility] - 04/01/2022 9:37 AM [employer] These images are for Reference purposes only and have not been reviewed by [facility] Radiology. There will be no report generated by a [facility] Radiologist. Narrative [facility] - 04/01/2022 9:37 AM [employer] EXAMINATION: Images For Reference Purposes Only us Self Referral IMG MAMMO PROCEDURES Final Resul t [facility] documented in this encounter Visit Diagnoses Not on filedocumented in this encounter
[2025-01-06 17:50] LABS: Hematocrit 37.3 % (37.0-47.0); Hemoglobin 12.3 g/dL (12.0-15.0); Immature Granulocyte Percent A 0.3 % (0-0.5); Lymphocytes Absolute Auto 2.00 K/mm3 (0.9-3.2); Mean Corpuscular HGB Conc 33.0 g/dl (32-36); Mean Corpuscular Hemoglobin 31.3 pg (26-34); Mean Corpuscular Volume 94.9 fl (80-100); Nucleated Red Blood Cells Absolute Auto 0.000 K/mm3 (0.0-0.012); Nucleated Red Blood Cells Perc 0.0 % (0.0-0.2); Platelet Count Result 218 k/mm3 (150-375); Red Blood Count 3.93 M/mm3 (4.2-5.4); White Blood Count 6.0 K/mm3 (4.5-10.0)
--- OUTSIDE RECORDS SUMMARY | 2025-01-06 17:54 | XMS_ITS | Clinical Summary ---
Author Organization [facility] Address [address] [place] [address] Care Team Providers Care Mechanical Engineering Draftsperson Name Role Phone Ricardo Barnhart MD Primary Care Provider [phone] Source Comments [facility],non-owned Affiliates and Associated Physician Practices is amultiple site organization consisting of ambulatory clinics and hospital sitesin [place], [place], [place]. This disclosure is being madepursuant to the Care Everywhere program and may not contain all information available regarding this patient. Last updated 17.[facility] Allergies No known active allergies Medications * Be aware that medications may not be up to date on this document. Alwaysverify current medications with the patient. rx 1 60-1 MG tablet Take 1 Tab by mouth daily. Active fluoxetine (PROZAC) 20 MG capsule Take 20 mg by mouth daily. Active Family History Medical History Relation Name Comments Diabetes Father Hypertension Father Diabetes Paternal Grandmother Cancer Paternal Uncle pancreatic, l brian. Diabetes Paternal Uncle Relation Name Status Comments Father Paternal Grandmother Paternal Uncle Social History Tobacco Use Types Packs/Day Years Used Date Smoking Tobacco: Never Alcohol Use Standard Drinks/Week Comments No 0 (1 standard drink = 0.6 oz pur e alcohol) Comments No Sex and Gender Information Value Date Recorded Sex Assigned at Not on file Legal Sex Female 6:28 AM SPLITTER HEAD Gender Identity Not on file Sexual Orientation Not on file Last Filed Vital Signs Vital Sign Reading Time Taken Comments Blood Pressure 98/62 10/06/2009 8:30 AM CDT Pulse 76 10/06/2009 8:30 AM CDT Temperature 36.3 C (97.3 F) 10/06/2009 8:30 AM CDT Respiratory Rate 18 10/06/2009 8:30 AM CDT Oxygen Saturation - - Inhaled Oxygen Concentration - - Weight 76.2 kg (168 lb) 10/03/2009 10:56 PM CDT Height 170.2 cm (5' 7) 10/03/2009 10:56 PM CDT Body Mass Index 26.31 10/03/2009 10:56 PM CDT Plan of Treatment Health Maintenance Due Date Last Done Comments COLOGUARD (AGES 45-75) - COL ON CA SCREENING 1974 COLON MONITORING 1974 COLONOSCOPY - COLON CA SCREENING 1974 CT COLONOGRAPHY - COLON CA SCREENING 1974 Colorectal Cancer Screening 1974 FIT - COLON CA SCREENING 1974 FLEX SIG - COLON CA SCREENING 1974 LIPID TESTING 1974 MAMMOGRAM 1974 HIV SCREENING 1989 HEPATITIS C SCREENING 03/28/1992 DTAP/TDAP/TD VACCINES (1 - Tdap) 1993 HEPATITIS B VACCINE (1 of 3 - 19+ 3-dose series) 1993 PAP SMEAR 03/29/2012 03/29/2009 DEPRESSION SCREENING 03/24/2024 PNEUMOCOCCAL VACCINE 50+ (1 of 1 - PCV) 2024 ZOSTER VACCINE (1 of 2) 2024 COVID-19 VACCINE (1 - 2023-2 5 season) 2024 INFLUENZA VACCINE (#1) 2024 HIB VACCINE Aged Out No longer eligi ble based on patient's age to complete this topic HPV VACCINE Aged Out No longer eligi ble based on patient's age to complete this topic MENINGOCOCCAL (Group B) VACC INE SHARED DECISION-MAKING Aged Out No longer eligibl e based on patient's age to complete this topic MENINGOCOCCAL GROUPS A/C/Y/W VACCINE Aged Out No longer eligible b ased on patient's age to complete this topic Procedures Procedure Name Priority Date/Time Associated Diagnosis Comments PAP SMEAR 1 SLIDE Routine 03/29/2009 from Last 3 Months or Most Recently Relevant to Health Maintenance Results * PAP SMEAR 1 SLIDE (03/29/2009) Other (qualifier value) 03/29/2009 Narrative [facility] - 03/31/2009 2:17 PM SPLITTER HEAD This external order was created through the Results Console. us Historical Provider MD LAB - PATHOLOGY/CYTOLOGY ORDERABLES Final Result Performing Organization Address City/State/[facility] Co de Phone Number [facility] [address] [place] [address], [facility] from Last 3 Months or Most Recently Relevant to Health Maintenance Insurance SELF PAY NO INSURANCE Member Subscriber Plan / Payer (Ef fective for All Dates) Name:Prabha Kinney Member ID:Not on file Relation to Subscriber:Not on file Name:PRABHA KINNEY Subscriber ID:Not on file Address: [address] [place] [address] Payer ID:Not on file Group ID:Not on file Type:Self Pay Address: [facility] SELF PAY NO INSURANCE Member Subscriber Plan / Payer (Ef fective for All Dates) Name:Prabha Kinney Member ID:Not on file Relation to Subscriber:Not on file Name:PRABHA KINNEY Subscriber ID:Not on file Address: [address] [place] [address] Payer ID:Not on file Group ID:Not on file Type:Self Pay Address: [facility] Advance Directives * Full Code (Latest Code Status on File) Date Activated Date Inactivated Comments 10/04/2009 7:44 AM 10/07/2009 1:26 AM * Full Code Date Activated Date Inactivated Comments 10/04/2009 1:31 AM 10/04/2009 7:44 AM Care Teams Mechanical Engineering Draftsperson Relationship Specialty Start Date End Date Ricardo Barnhart MD [address] [place] [id number] PCP - General 03/07/22
--- OUTSIDE RECORDS SUMMARY | 2025-01-06 17:54 | XMS_ITS | Clinical Summary ---
Author Organization [facility] Address [address] [place] [address] Care Team Providers Care Hose Suspender Cutter Name Role Phone Ricardo Barnhart MD Primary Care Provider [phone] Social History Tobacco Use Types Packs/Day Years Used Date Smoking Tobacco: Never Assessed Personal Safety Answer Date Recorded Getting School Help Needed Not on file 03/26 Comments Unknown Sex and Gender Information Value Date Recorded Sex Assigned at Not on file Legal Sex Female 2:43 AM CYLINDRICAL MIXER Gender Identity Not on file Sexual Orientation Not on file Plan of Treatment Health Maintenance Due Date Last Done Comments Cervical Cancer Screening 1974 Colon Cancer Screening-Colonoscopy 1974 Depression Screening 1974 Hepatitis C Screening 1974 DTaP/Tdap/Td Vaccine (1 - Tdap) 1985 Hepatitis B Screening 1992 Regular Well Visit/Exam 18-64 1992 Zoster Vaccine (1 of 2) 2024 Breast Cancer Screening-Mammogram 05/22/2024 05/23/2023, 03/26/2022 Influenza Vaccine (#1) 2024 7, 01/13/2017 Pneumococcal vaccine <65 Aged Out No longer eligible based on patient's age to complete this topic Procedures Procedure Name Priority Date/Time Associated Diagnosis Comments SCREENING MAMMOGRAM BILATERAL W CHAKA Schedule Routine, Read Routine (OP Routine) 05/23/2023 11:04 AM CYLINDRICAL MIXER Screening mammogram, encounter for from Last 3 Months or Most Recently Relevant to Health Maintenance Results * Screening Mammogram Bilateral W Chaka (05/23/2023 11:04 AM CYLINDRICAL MIXER) Anatomical Region Laterality Modality Breast Bilateral Mammography Narrative 05/26/2023 4:29 PM CYLINDRICAL MIXER Mammogram Technique: Bilateral Digital Breast Tomosynthesis, Bilateral C-view 2D Screening mammogram. Views obtained: bilateral craniocaudal and bilateral mediolateral oblique. Computer Aided Detection was performed. Mammogram Findings: The present examination has been compared to prior imaging studies performed at [facility] on 05/01/2016 and 02/29/2020, and at [facility] on 03/26/2022. The breasts are extremely dense, which lowers the sensitivity of mammography. There is no suspicious abnormality in either breast. Impression: There is no mammographic evidence of malignancy. Annual screening mammography is recommended. Consider breast MRI for supplemental screening given the patient's extremely dense breast tissue. OVERALL FINAL ASSESSMENT: BI-RADS CATEGORY 1: Negative. Procedure Note Soheila Anthony MD - 05/26/2023 Mammogram Technique: Bilateral Digital Breast Tomosynthesis, Bilateral C-view 2D Screening mammogram. Views obtained: bilateral craniocaudal and bilateral mediolateral oblique. Computer Aided Detection was performed. Mammogram Findings: The present examination has been compared to prior imaging studies performed at [facility] on 05/01/2016 and 02/29/2020, and at [facility] on 03/26/2022. The breasts are extremely dense, which lowers the sensitivity of mammography. There is no suspicious abnormality in either breast. Impression: There is no mammographic evidence of malignancy. Annual screening mammography is recommended. Consider breast MRI for supplemental screening given the patient's extremely dense breasttissue. OVERALL FINAL ASSESSMENT: BI-RADS CATEGORY 1: Negative. us Self Screening Mammogram IMG MAMMO PROCEDURES Fi nal Result from Last 3 Months or Most Recently Relevant to Health Maintenance Insurance [facility] Care Teams Hose Suspender Cutter Relationship Specialty Start Date End Date Ricardo Barnhart MD [address] [place] [address] PCP - General Internal Medicine 01/17/22
--- OUTSIDE RECORDS SUMMARY | 2025-01-06 17:54 | XMS_ITS | Clinical Summary ---
Author Organization [facility] Address [address] [place] [id number] Care Team Providers Care Hazardous Substances Engineer Name Role Phone Ricardo Barnhart MD Primary Care Provider [phone] Allergies No known active allergies Medications FLUoxetine (PROZAC) 20 MG capsuleIndicati ons:Recurrent major depressive disorder, remission status unspecified,Anx iety Take 1 capsule by mouth once daily 30 capsule 5 03/19/2024 Active Active Problems Problem Noted Date Diagnosed Date Onychomycosis of toenail 07/02/2022 Anxiety 10/10/2015 Depression 12/10/2011 Fatigue 12/10/2011 Immunizations Immunization Administration Dates Next Due Influenza (Generic) 01/13/2017 Family History Medical History Relation Comments Cancer Father skin Diabetes Father type 2 Hypertension Father Lung Cancer Father Hypertension Mother Relation Status Comments Father Alive Mother Alive Social History Tobacco Use Types Packs/Day Years Used Date Smoking Tobacco: Never Smokeless Tobacco: Never Alcohol Use Standard Drinks/Week Comments Yes 0 (1 standard drink = 0.6 oz pur e alcohol) 1-2 per year PHQ-2 Answer Date Recorded Patient Health Questionnaire-2 Score 0 09/30/2024 Comments No Sex and Gender Information Value Date Recorded Sex Assigned at Female 09/30/2024 10:34 AM CDT Legal Sex Female 6:13 PM CDT Gender Identity Not on file Sexual Orientation Not on file Last Filed Vital Signs Vital Sign Reading Time Taken Comments Blood Pressure 112/64 09/30/2024 10:34 AM CDT Pulse 81 09/30/2024 10:34 AM CDT Temperature 36.8 C (98.2 F) 09/30/2024 10:34 AM CDT Respiratory Rate 16 09/30/2024 10:34 AM CDT Oxygen Saturation 97% 09/30/2024 10:34 AM CDT Inhaled Oxygen Concentration - - Weight 65 kg (143 lb 6.4 oz) 09/30/2024 10:34 AM CDT Height 170.2 cm (5' 7) 09/30/2024 10:34 AM CDT Body Mass Index 22.46 09/30/2024 10:34 AM CDT Plan of Treatment Health Maintenance Due Date Last Done Comments Annual Physical 1977 Hepatitis B Vaccines (1 of 3 - 19+ 3-dose series) 1993 Cervical Cancer Screening Pap with HPV Testing (Age 30 to 64) Every 5 Years 2004 Cervical Cancer Screening Pap Smear (Age 30 to 64) Every 3 Years 03/29/2012 03/29/2009 Cervical Cancer Screening with HPV 03/29/2012 Pneumococcal Vaccine: 50+ Years (1 of 1 - PCV) 2024 Zoster Vaccines (1 of 2) 2024 COVID-19 Vaccine (1 - season) 2024 Influenza Adult (#1) 2024 01/13/2017 DTaP, Tdap and Td Vaccines (1 - Tdap) 02/02/2025 Postponed from 1993 (Patient Refused) Mammogram Screening 05/22/2025 05/23/2023, 03/26/2022, 03/26/2022, Additional history exists Colorectal Cancer Screening Colonoscopy (10 Years) 03/06/2032 03/06/2022 Hepatitis C Completed 02/27/2023 PHQ-2 (Physician [place]) Completed 09/30/2024 Meningococcal B Vaccine Aged Out No l onger eligible based on patient's age to complete this topic Meningococcal Vaccine Aged Out No yumiko rigoberto eligible based on patient's age to complete this topic RSV Immunizations Under 20 Months Aged Out No longer eligible based on patient's age to complete this topic Procedures Procedure Name Priority Date/Time Associated Diagnosis Comments HEP C SCANNED ORDERS Routine 02/27/2023 MAMMOGRAM GENERIC (SCAN ORDER) 03/26/2022 COLONOSCOPY GENERIC (SCAN ORDER) 03/06/2022 from Last 3 Months or Most Recently Relevant to Health Maintenance Results * HEP C SCANNED ORDERS (02/27/2023) [facility] Scanned SCANNING Final Resu lt [facility] * MAMMOGRAM GENERIC (03/26/2022) Anatomical Region Laterality Modality Other 03/26/2022 us [facility] Scanned SCANNING Final Resu lt * COLONOSCOPY GENERIC (03/06/2022) 03/06/2022 [facility] Scanned SCANNING Final Resu lt from Last 3 Months or Most Recently Relevant to Health Maintenance Insurance R Care Teams Hazardous Substances Engineer Relationship Specialty Start Date End Date Ricardo Barnhart MD [address] [place] [id number] PCP - General INTERNAL MEDICINE 10/20/19
[2025-01-06 17:56] LABS: Add Urine Microscopic? NO; Appearance Urine Clear (Clear); Glucose Urine UA Negative (Negative); Leukocyte Esterase Ur Negative LEU/UL (Negative); Nitrate Urine Negative (Negative); Specific Grav Ur 1.018 (1.001-1.035)
[2025-01-06 19:05] LABS: Iron 82 ug/dL (37-170)
[2025-01-06 19:19] LABS: Percent Iron Saturation 28 % (20-50)
[2025-01-06 19:24] LABS: CRP < 0.5 mg/dL (<1.0)
[2025-01-06 19:37] LABS: Free T4 Free Thyroxine 1.08 ng/dL (0.78-2.19)
[2025-01-06 19:49] LABS: Hemoglobin A1C 4.9 % (<5.7)
[2025-01-06 19:50] LABS: Ferritin 41.20 ng/mL (11.1-264)
[2025-01-06 19:59] LABS: Alanine Aminotransferase 18 U/L (6-35); Albumin Level 4.6 g/dL (3.5-5.1); Alkaline Phosphatase 60 U/L (38-126); Anion Gap 12 mmol/L (4-12); Aspartate Amino Transferase 27 U/L (14-36); Bilirubin,Total 0.3 mg/dL (0.2-1.3); Blood Urea Nitrogen 18 mg/dL (7-17); Calcium 9.1 mg/dL (8.4-10.2); Carbon Dioxide 26 mmol/L (22-30); Chloride 100 mmol/L (98-107); Cholesterol 203 mg/dL (0-200); Estimated Glomerular Filt Rate > 60; Glucose 87 mg/dL (65-110); HDL Direct 60 mg/dL; Potassium 3.5 mmol/L (3.4-5.0); Sodium 138 mmol/L (137-145); Total Protein 7.8 g/dL (6.3-8.2); Triglycerides 97 mg/dL (<150); Uric Acid 2.2 mg/dL (2.5-7.5)
[2025-01-06 20:03] LABS: Thyroid Stimulating Hormone 2.210 uIU/mL (0.465-4.680)
== END 2025-01-06 16:42 | disposition home or self-care (01) ==
LOC: ANHLAB 16:44
PROVIDERS: PCP Internal Medicine; Visit Provider Internal Medicine
DX: Z00.00 Encounter for general adult medical examination without abnormal findings (principal)
CPT/HCPCS: 36415; 80053; 80061; 81003; 82306; 82728; 83036; 83540; 83550; 84439; 84443; 84550; 85025; 86140